=== PATIENT | male | born 1955 | race African-American/Black ===

== ENCOUNTER 2023-07-15 08:45 | Inpatient (IN) | payer OTHER ==
[2023-07-15 09:25] VITALS: BMI 22.7
[2023-07-15] MEDS ORDERED: hydrOXYzine PAMOATE 25 MG CAPSULE (FP) PO PRN (12:49)
[2023-07-15] MEDS ORDERED: MAGNESIUM HYDROX 2400MG/30ML ORAL SUSPENSION 30 ML CUP PO PRN (12:49)
[2023-07-15] MEDS ORDERED: COLLOIDAL OATMEAL 1 BAR EACH TP PRN (12:49)
[2023-07-15] MEDS ORDERED: IBUPROFEN 600 MG TABLET (FP) PO PRN (12:49)
[2023-07-15] MEDS ORDERED: LOPERAMIDE HCL 2 MG CAPSULE PO PRN (12:49)
[2023-07-15] MEDS ORDERED: NICOTINE POLACRILEX 2 MG GUM BUC PRN (12:49)
[2023-07-15] MEDS ORDERED: BENZOCAINE/MENTHOL (CHLORASEPTIC ) LOZENGE MM PRN (12:49)
[2023-07-15] MEDS ORDERED: POLYETHYLENE GLYCOL (HEALTHYLAX) 3350 17 GM PACKET PO PRN (12:49)
[2023-07-15] MEDS ORDERED: IBUPROFEN 400 MG TABLET (FP) PO PRN (12:49)
[2023-07-15] MEDS ORDERED: guaiFENesin 600 MG TABLET.ER (FP) PO PRN (12:49)
[2023-07-15] MEDS ORDERED: BENZONATATE 200 MG CAPSULE PO PRN (12:49)
[2023-07-15] MEDS ORDERED: ACETAMINOPHEN 325 MG TABLET (FP) PO PRN (12:49)
[2023-07-15] MEDS ORDERED: P-EPHED 60MG/TRIPROLIDI 2.5MG TABLET PO PRN (12:49)
[2023-07-15] MEDS ORDERED: TUBERCULIN PPD 5 TU/0.1ML VIAL ID ONE (16:50)
[2023-07-15] MEDS: MELATONIN 5 MG TABLETS PO SCH (21:36)
[2023-07-15] MEDS: THIAMINE HCL 100 MG TABLET (FP) PO SCH (21:36)
[2023-07-16] MEDS: FLUCONAZOLE 100 MG TABLET (UD) PO SCH (10:19)
[2023-07-16] MEDS: ALLOPURINOL 100 MG TABLET (FP) PO SCH (10:19)
[2023-07-16] MEDS: PRENATAL VITAMINS W/ FOLIC ACID TABLET (FP) PO SCH (10:19)
[2023-07-16] MEDS: amLODIPine BESYLATE 10 MG TABLET (FP) PO SCH (10:20)
[2023-07-16 12:09] LABS: POTASSIUM 4.1 mmol/L (3.5-5.1)
[2023-07-16 12:12] LABS: ALBUMIN 3.3 g/dl (3.4-5.0); BLOOD UREA NITROGEN 23.5 mg/dL (7-18); CALCIUM 9.5 mg/dL (8.5-10.1)
[2023-07-16 12:15] LABS: CREATININE 0.8 mg/dL (0.55-1.3)
[2023-07-16 12:18] LABS: BILIRUBIN,TOTAL 0.4 mg/dL (0.2-1); TOT PROT 7.9 g/dl (6.4-8.2)
[2023-07-16 12:21] LABS: PH,URINE 7.5 (5.0-8.0); URINE APPEARANCE CLEAR; URINE BILIRUBIN NEGATIVE (NEGATIVE); URINE COLOR YELLOW; URINE GLUCOSE (UA) NEGATIVE (NEGATIVE); URINE KETONE NEGATIVE (NEGATIVE); URINE LEUK ESTERASE NEGATIVE (NEGATIVE); URINE NITRITE NEGATIVE (NEGATIVE); URINE PROTEIN NEGATIVE (NEGATIVE); URINE UROBILINOGEN 0.2 mg/dL (0.2-1.0)
[2023-07-16] MEDS: MELATONIN 5 MG TABLETS PO SCH (21:50)
[2023-07-16] MEDS: THIAMINE HCL 100 MG TABLET (FP) PO SCH (21:50)
[2023-07-17 07:06] VITALS: RESP 18
[2023-07-17] MEDS: PRENATAL VITAMINS W/ FOLIC ACID TABLET (FP) PO SCH (10:21)
[2023-07-17] MEDS: FLUCONAZOLE 100 MG TABLET (UD) PO SCH (10:22)
[2023-07-17] MEDS: amLODIPine BESYLATE 10 MG TABLET (FP) PO SCH (10:22)
[2023-07-17] MEDS: ALLOPURINOL 100 MG TABLET (FP) PO SCH (10:22)
[2023-07-17] MEDS: MELATONIN 5 MG TABLETS PO SCH (22:01)
[2023-07-17] MEDS: MAG HYDROX/AL HYDROX/SIMETH 30 ML UNIT-DOSE CUP PO PRN (22:01)
[2023-07-17] MEDS: THIAMINE HCL 100 MG TABLET (FP) PO SCH (22:01)
[2023-07-18 07:04] VITALS: TEMP 98
[2023-07-18] MEDS: PRENATAL VITAMINS W/ FOLIC ACID TABLET (FP) PO SCH (09:37)
[2023-07-18] MEDS: amLODIPine BESYLATE 10 MG TABLET (FP) PO SCH (09:37)
[2023-07-18] MEDS: MAG HYDROX/AL HYDROX/SIMETH 30 ML UNIT-DOSE CUP PO PRN ×2 (09:37→19:14)
[2023-07-18] MEDS: FLUCONAZOLE 100 MG TABLET (UD) PO SCH (10:33)
[2023-07-18] MEDS: ALLOPURINOL 100 MG TABLET (FP) PO SCH (10:33)
[2023-07-18 11:46] LABS: SYPHILIS W/ RPR CONF NON-REACTIVE (NONREACTIVE)
[2023-07-18] MEDS: THIAMINE HCL 100 MG TABLET (FP) PO SCH (21:35)
[2023-07-18] MEDS: MELATONIN 5 MG TABLETS PO SCH (21:35)
[2023-07-19] MEDS: MAG HYDROX/AL HYDROX/SIMETH 30 ML UNIT-DOSE CUP PO PRN ×2 (01:00→09:22)
[2023-07-19] MEDS: ALLOPURINOL 100 MG TABLET (FP) PO SCH (09:21)
[2023-07-19] MEDS: FLUCONAZOLE 100 MG TABLET (UD) PO SCH (09:22)
[2023-07-19] MEDS: amLODIPine BESYLATE 10 MG TABLET (FP) PO SCH (09:22)
[2023-07-19] MEDS: PRENATAL VITAMINS W/ FOLIC ACID TABLET (FP) PO SCH (09:24)
[2023-07-19 10:17] VITALS: BP 120/72; PULSE 74
[2023-07-19] MEDS ORDERED: PANTOPRAZOLE 40 MG TABLET PO SCH (11:45)
[2023-07-19] MEDS ORDERED: BISMUTH SUBSALICYLATE 262 MG/15 ML BTL PO SCH (12:00)
[2023-07-19] MEDS: MELATONIN 5 MG TABLETS PO SCH (21:48)
[2023-07-19] MEDS: THIAMINE HCL 100 MG TABLET (FP) PO SCH (21:48)
== END 2023-07-19 23:44 | disposition short-term general hospital (02) | DRG 895 ==
LOC: YASAS 08:45 → Y5N 13:08
PROVIDERS: ADMIT Allergy & Immunology; ATTEND Psychiatry & Neurology Pain Medicine
PROC: HZ42ZZZ Group Counseling for Substance Abuse Treatment, Cognitive-Behavioral (ICD-10-PCS; principal; 2023-07-15)
DX: F14.20 Cocaine dependence, uncomplicated (principal); K92.0 Hematemesis; Z59.00 Homelessness unspecified; F10.20 Alcohol dependence, uncomplicated; F17.210 Nicotine dependence, cigarettes, uncomplicated; K21.9 Gastro-esophageal reflux disease without esophagitis; I10 Essential (primary) hypertension; M41.9 Scoliosis, unspecified; M54.50 Low back pain, unspecified; G89.29 Other chronic pain; Z56.0 Unemployment, unspecified
CPT/HCPCS: 36415; 80053; 81003; 86780; 86803; 87635; 87811

== ENCOUNTER 2023-07-19 14:08 | Inpatient (IN) | payer OTHER ==
[2023-07-19] MEDS ORDERED: SODIUM CHLORIDE 0.9% 500 ML INFUS.BAG IV ONE (15:04)
[2023-07-19] MEDS ORDERED: ACETAMINOPHEN 1000 MG/100 ML BAG IVPB ONE (15:04)
[2023-07-19] MEDS ORDERED: FAMOTIDINE 20 MG/50 ML IVPB 20 MG/50 ML MG IVPB ONE (15:04)
[2023-07-19 15:56] LABS: BASO % 0.2 % (0-2.0); EOS % 0.5 % (0-4.5); HEMATOCRIT 38.5 % (35.4-49); HEMOGLOBIN 12.7 GM/dL (11.7-16.9); LYMPH % 8.6 % (8-40); MCH 28.4 pg (25.7-33.7); MCHC 32.9 g/dl (32.0-35.9); MEAN CELL VOLUME 86.3 fl (80-96); MEAN PLT VOLUME 6.7 fl (7.5-11.1); NEUT % 84.7 % (42.8-82.8); PLATELET COUNT 435 10^3/uL (134-434); RBC 4.47 M/mm3 (4.00-5.60); RDW 15.5 % (11.9-15.9); WHITE BLOOD COUNT 5.1 K/mm3 (4.0-10.0)
[2023-07-19 15:58] LABS: PH,URINE 8.5 (5.0-8.0); URINE APPEARANCE CLOUDY; URINE BILIRUBIN NEGATIVE (NEGATIVE); URINE COLOR YELLOW; URINE GLUCOSE (UA) NEGATIVE (NEGATIVE); URINE KETONE NEGATIVE (NEGATIVE); URINE LEUK ESTERASE NEGATIVE (NEGATIVE); URINE NITRITE NEGATIVE (NEGATIVE); URINE PROTEIN NEGATIVE (NEGATIVE); URINE UROBILINOGEN 0.2 mg/dL (0.2-1.0)
[2023-07-19] MEDS ORDERED: ACETAMINOPHEN INJECTION 100 ML IVPB ONE (15:58)
[2023-07-19 16:10] LABS: INR 1.1 (0.83-1.09); PROTHROMBIN TIME (PATIENT) 12.7 SEC (9.7-13.0)
[2023-07-19 16:12] LABS: ACTIVATED PTT 27.3 SECONDS (25.2-36.5)
[2023-07-19] MEDS ORDERED: PANTOPRAZOLE SODIUM 40 MG VIAL IVPUSH ONE (16:14)
[2023-07-19 16:18] LABS: POTASSIUM 4.6 mmol/L (3.5-5.1)
[2023-07-19 16:20] LABS: ALBUMIN 3.6 g/dl (3.4-5.0); MAGNESIUM 2.4 mg/dL (1.8-2.4)
[2023-07-19 16:23] LABS: CREATININE 0.8 mg/dL (0.55-1.3)
[2023-07-19 16:25] LABS: BILIRUBIN,TOTAL 0.4 mg/dL (0.2-1); TOT PROT 8.8 g/dl (6.4-8.2)
[2023-07-19] MEDS ORDERED: PANTOPRAZOLE SODIUM 40 MG/100 ML BAG IVPB ONE (16:41)
[2023-07-19] MEDS ORDERED: SODIUM CHLORIDE 1,000 ML IV SCH (21:15)
[2023-07-19] MEDS: PANTOPRAZOLE SODIUM 40 MG VIAL IVPUSH SCH (23:31)
[2023-07-19] MEDS: SODIUM CHLORIDE 1,000 ML IV SCH (23:31)
[2023-07-20] MEDS ORDERED: FLUCONAZOLE 200 MG PO SCH (10:00)
[2023-07-20] MEDS ORDERED: PATIENT'S OWN MEDICATION (NON-FORMULARY) (Fluconazole [Fluconazole] 200 MG) IV SCH (10:00)
[2023-07-20] MEDS ORDERED: amLODIPine BESYLATE 10 MG TABLET (FP) PO SCH (10:00)
[2023-07-20] MEDS: ALLOPURINOL 100 MG TABLET (FP) PO SCH (10:36)
[2023-07-20] MEDS: PANTOPRAZOLE SODIUM 40 MG VIAL IVPUSH SCH ×2 (10:36→21:59)
[2023-07-20 10:44] LABS: HEMATOCRIT 35.9 % (35.4-49); HEMOGLOBIN 11.8 GM/dL (11.7-16.9); MCH 28.5 pg (25.7-33.7); MCHC 32.9 g/dl (32.0-35.9); MEAN CELL VOLUME 86.6 fl (80-96); MEAN PLT VOLUME 6.8 fl (7.5-11.1); PLATELET COUNT 472 10^3/uL (134-434); RBC 4.14 M/mm3 (4.00-5.60); RDW 15.6 % (11.9-15.9); WHITE BLOOD COUNT 3.4 K/mm3 (4.0-10.0)
[2023-07-20] MEDS: FLUCONAZOLE 200 MG/NS 100 ML IVPB SCH (11:21)
[2023-07-20 11:38] LABS: POTASSIUM 5.4 mmol/L (3.5-5.1)
[2023-07-20 11:40] LABS: ALBUMIN 3.3 g/dl (3.4-5.0); CALCIUM 9.8 mg/dL (8.5-10.1)
[2023-07-20 11:41] LABS: BLOOD UREA NITROGEN 13.5 mg/dL (7-18)
[2023-07-20 11:43] LABS: BILIRUBIN,DIRECT 0.2 mg/dL (0.0-0.2)
[2023-07-20 11:44] LABS: CREATININE 0.8 mg/dL (0.55-1.3)
[2023-07-20 11:45] LABS: BILIRUBIN,TOTAL 0.7 mg/dL (0.2-1)
[2023-07-20 13:00] LABS: HIV INTERPRETATION NEGATIVE (NEGATIVE)
[2023-07-20] MEDS ORDERED: SODIUM ZIRCONIUM CYCLOSILICATE (LOKELMA) 5 GM PACKET PO ONE (16:00)
[2023-07-20 19:37] LABS: HEMATOCRIT 33.2 % (35.4-49); HEMOGLOBIN 10.9 GM/dL (11.7-16.9); MCH 28.3 pg (25.7-33.7); MCHC 32.7 g/dl (32.0-35.9); MEAN CELL VOLUME 86.6 fl (80-96); MEAN PLT VOLUME 6.8 fl (7.5-11.1); PLATELET COUNT 425 10^3/uL (134-434); RBC 3.83 M/mm3 (4.00-5.60); RDW 15.3 % (11.9-15.9); WHITE BLOOD COUNT 3.2 K/mm3 (4.0-10.0)
[2023-07-20] MEDS: SODIUM CHLORIDE 1,000 ML IV SCH (22:00)
[2023-07-21 09:18] VITALS: RESP 18
[2023-07-21 09:20] LABS: BASO % 0.6 % (0-2.0); EOS % 3.4 % (0-4.5); HEMATOCRIT 30.5 % (35.4-49); HEMOGLOBIN 10.1 GM/dL (11.7-16.9); LYMPH % 13.6 % (8-40); MCH 28.2 pg (25.7-33.7); MEAN CELL VOLUME 85.7 fl (80-96); MEAN PLT VOLUME 6.7 fl (7.5-11.1); MONO % 12.7 % (3.8-10.2); NEUT % 69.7 % (42.8-82.8); PLATELET COUNT 365 10^3/uL (134-434); RBC 3.56 M/mm3 (4.00-5.60); RDW 15.2 % (11.9-15.9); WHITE BLOOD COUNT 3.8 K/mm3 (4.0-10.0)
[2023-07-21 09:47] LABS: POTASSIUM 4.3 mmol/L (3.5-5.1)
[2023-07-21] MEDS: PANTOPRAZOLE SODIUM 40 MG VIAL IVPUSH SCH (09:48)
[2023-07-21] MEDS: ALLOPURINOL 100 MG TABLET (FP) PO SCH (09:48)
[2023-07-21] MEDS: FLUCONAZOLE 200 MG/NS 100 ML IVPB SCH (09:48)
[2023-07-21 10:01] LABS: ALBUMIN 2.6 g/dl (3.4-5.0); CALCIUM 8.6 mg/dL (8.5-10.1)
[2023-07-21 10:04] LABS: CREATININE 0.8 mg/dL (0.55-1.3)
[2023-07-21 10:05] LABS: BILIRUBIN,TOTAL 0.4 mg/dL (0.2-1); TOT PROT 6.5 g/dl (6.4-8.2)
[2023-07-21 14:15] VITALS: BMI 21.2
[2023-07-21 14:57] VITALS: BP 106/49; PULSE 63; TEMP 98.2
== END 2023-07-21 15:54 | disposition other institution (70) | DRG 377 ==
LOC: JER 14:08 → JERBED 17:34 → J5S 20:41
PROVIDERS: ADMIT Internal Medicine; ATTEND Internal Medicine
DX: K92.0 Hematemesis (principal); E43 Unspecified severe protein-calorie malnutrition; B37.81 Candidal esophagitis; Z59.00 Homelessness unspecified; B37.9 Candidiasis, unspecified; F14.10 Cocaine abuse, uncomplicated; I10 Essential (primary) hypertension; F10.20 Alcohol dependence, uncomplicated; K21.9 Gastro-esophageal reflux disease without esophagitis; K22.70 Barrett's esophagus without dysplasia; K44.9 Diaphragmatic hernia without obstruction or gangrene; K22.6 Gastro-esophageal laceration-hemorrhage syndrome; K92.2 Gastrointestinal hemorrhage, unspecified; Z68.21 Body mass index [BMI] 21.0-21.9, adult
CPT/HCPCS: 36415; 71046-TC-FY; 76705-TC; 80048; 80053; 80076; 81003; 83605; 83690; 83735; 84100; 84484; 85025; 85027; 85610; 85730; 86850; 86900; 86901; 87086; 87389; 93005; 93010; 99285-25

== ENCOUNTER 2023-07-21 16:41 | Inpatient (IN) | payer OTHER ==
[2023-07-21 17:19] VITALS: BMI 21.5
[2023-07-21] MEDS ORDERED: ACETAMINOPHEN 325 MG TABLET (FP) PO PRN (17:47)
[2023-07-21] MEDS ORDERED: COLLOIDAL OATMEAL 1 BAR EACH TP PRN (17:47)
[2023-07-21] MEDS ORDERED: BENZOCAINE/MENTHOL (CHLORASEPTIC ) LOZENGE MM PRN (17:47)
[2023-07-21] MEDS ORDERED: MAGNESIUM HYDROX 2400MG/30ML ORAL SUSPENSION 30 ML CUP PO PRN (17:47)
[2023-07-21] MEDS ORDERED: P-EPHED 60MG/TRIPROLIDI 2.5MG TABLET PO PRN (17:47)
[2023-07-21] MEDS ORDERED: BENZONATATE 200 MG CAPSULE PO PRN (17:47)
[2023-07-21] MEDS ORDERED: MAG HYDROX/AL HYDROX/SIMETH 30 ML UNIT-DOSE CUP PO PRN (17:47)
[2023-07-21] MEDS ORDERED: LOPERAMIDE HCL 2 MG CAPSULE PO PRN (17:47)
[2023-07-21] MEDS ORDERED: POLYETHYLENE GLYCOL (HEALTHYLAX) 3350 17 GM PACKET PO PRN (17:47)
[2023-07-21] MEDS ORDERED: NICOTINE POLACRILEX 2 MG GUM BUC PRN (17:47)
[2023-07-21] MEDS ORDERED: guaiFENesin 600 MG TABLET.ER (FP) PO PRN (17:47)
[2023-07-21] MEDS: MELATONIN 5 MG TABLETS PO SCH (22:05)
[2023-07-21] MEDS: THIAMINE HCL 100 MG TABLET (FP) PO SCH (22:05)
[2023-07-22] MEDS: amLODIPine BESYLATE 10 MG TABLET (FP) PO SCH (09:45)
[2023-07-22] MEDS: PRENATAL VITAMINS W/ FOLIC ACID TABLET (FP) PO SCH (09:46)
[2023-07-22] MEDS: PANTOPRAZOLE 40 MG TABLET PO SCH (09:46)
[2023-07-22] MEDS: FLUCONAZOLE 100 MG TABLET (UD) PO SCH (10:54)
[2023-07-22] MEDS: ALLOPURINOL 100 MG TABLET (FP) PO SCH (11:00)
[2023-07-22] MEDS: MELATONIN 5 MG TABLETS PO SCH (21:44)
[2023-07-22] MEDS: THIAMINE HCL 100 MG TABLET (FP) PO SCH (21:44)
[2023-07-23] MEDS: PRENATAL VITAMINS W/ FOLIC ACID TABLET (FP) PO SCH (10:02)
[2023-07-23] MEDS: ALLOPURINOL 100 MG TABLET (FP) PO SCH (10:03)
[2023-07-23] MEDS: FLUCONAZOLE 100 MG TABLET (UD) PO SCH (10:03)
[2023-07-23] MEDS: PANTOPRAZOLE 40 MG TABLET PO SCH (10:03)
[2023-07-23] MEDS: amLODIPine BESYLATE 10 MG TABLET (FP) PO SCH (10:03)
[2023-07-23] MEDS: MELATONIN 5 MG TABLETS PO SCH (21:41)
[2023-07-23] MEDS: THIAMINE HCL 100 MG TABLET (FP) PO SCH (21:41)
[2023-07-24] MEDS: PRENATAL VITAMINS W/ FOLIC ACID TABLET (FP) PO SCH (09:46)
[2023-07-24] MEDS: ALLOPURINOL 100 MG TABLET (FP) PO SCH (09:47)
[2023-07-24] MEDS: amLODIPine BESYLATE 10 MG TABLET (FP) PO SCH (09:47)
[2023-07-24] MEDS: PANTOPRAZOLE 40 MG TABLET PO SCH (09:47)
[2023-07-24] MEDS: FLUCONAZOLE 100 MG TABLET (UD) PO SCH (09:47)
[2023-07-24] MEDS: THIAMINE HCL 100 MG TABLET (FP) PO SCH (21:54)
[2023-07-24] MEDS: MELATONIN 5 MG TABLETS PO SCH (21:54)
[2023-07-25] MEDS: PRENATAL VITAMINS W/ FOLIC ACID TABLET (FP) PO SCH (09:52)
[2023-07-25] MEDS: amLODIPine BESYLATE 10 MG TABLET (FP) PO SCH (09:52)
[2023-07-25] MEDS: PANTOPRAZOLE 40 MG TABLET PO SCH (09:52)
[2023-07-25] MEDS: ALLOPURINOL 100 MG TABLET (FP) PO SCH (09:53)
[2023-07-25] MEDS: FLUCONAZOLE 100 MG TABLET (UD) PO SCH (09:53)
[2023-07-25] MEDS: MELATONIN 5 MG TABLETS PO SCH (23:26)
[2023-07-25] MEDS: THIAMINE HCL 100 MG TABLET (FP) PO SCH (23:26)
[2023-07-26] MEDS: PRENATAL VITAMINS W/ FOLIC ACID TABLET (FP) PO SCH (09:59)
[2023-07-26] MEDS: ALLOPURINOL 100 MG TABLET (FP) PO SCH (09:59)
[2023-07-26] MEDS: PANTOPRAZOLE 40 MG TABLET PO SCH (09:59)
[2023-07-26] MEDS: amLODIPine BESYLATE 10 MG TABLET (FP) PO SCH (09:59)
[2023-07-26] MEDS: FLUCONAZOLE 100 MG TABLET (UD) PO SCH (10:00)
[2023-07-26] MEDS: THIAMINE HCL 100 MG TABLET (FP) PO SCH (21:44)
[2023-07-26] MEDS: MELATONIN 5 MG TABLETS PO SCH (21:44)
[2023-07-27] MEDS: PRENATAL VITAMINS W/ FOLIC ACID TABLET (FP) PO SCH (09:46)
[2023-07-27] MEDS: amLODIPine BESYLATE 10 MG TABLET (FP) PO SCH (09:47)
[2023-07-27] MEDS: PANTOPRAZOLE 40 MG TABLET PO SCH (09:47)
[2023-07-27] MEDS: ALLOPURINOL 100 MG TABLET (FP) PO SCH (09:47)
[2023-07-27] MEDS: FLUCONAZOLE 100 MG TABLET (UD) PO SCH (09:48)
[2023-07-27] MEDS: THIAMINE HCL 100 MG TABLET (FP) PO SCH (22:20)
[2023-07-27] MEDS: MELATONIN 5 MG TABLETS PO SCH (22:20)
[2023-07-28] MEDS: PRENATAL VITAMINS W/ FOLIC ACID TABLET (FP) PO SCH (09:53)
[2023-07-28] MEDS: FLUCONAZOLE 100 MG TABLET (UD) PO SCH (09:54)
[2023-07-28] MEDS: amLODIPine BESYLATE 10 MG TABLET (FP) PO SCH (09:54)
[2023-07-28] MEDS: PANTOPRAZOLE 40 MG TABLET PO SCH (09:54)
[2023-07-28] MEDS: ALLOPURINOL 100 MG TABLET (FP) PO SCH (09:54)
[2023-07-28] MEDS: MELATONIN 5 MG TABLETS PO SCH (22:05)
[2023-07-28] MEDS: THIAMINE HCL 100 MG TABLET (FP) PO SCH (22:05)
[2023-07-29] MEDS: FLUCONAZOLE 100 MG TABLET (UD) PO SCH (09:49)
[2023-07-29] MEDS: amLODIPine BESYLATE 10 MG TABLET (FP) PO SCH (09:49)
[2023-07-29] MEDS: ALLOPURINOL 100 MG TABLET (FP) PO SCH (09:49)
[2023-07-29] MEDS: PANTOPRAZOLE 40 MG TABLET PO SCH (09:49)
[2023-07-29] MEDS: PRENATAL VITAMINS W/ FOLIC ACID TABLET (FP) PO SCH (09:49)
[2023-07-29] MEDS: THIAMINE HCL 100 MG TABLET (FP) PO SCH (22:37)
[2023-07-29] MEDS: MELATONIN 5 MG TABLETS PO SCH (22:37)
[2023-07-30] MEDS: PRENATAL VITAMINS W/ FOLIC ACID TABLET (FP) PO SCH (09:56)
[2023-07-30] MEDS: amLODIPine BESYLATE 10 MG TABLET (FP) PO SCH (09:57)
[2023-07-30] MEDS: ALLOPURINOL 100 MG TABLET (FP) PO SCH (09:57)
[2023-07-30] MEDS: PANTOPRAZOLE 40 MG TABLET PO SCH (09:57)
[2023-07-30] MEDS: MELATONIN 5 MG TABLETS PO SCH (22:06)
[2023-07-30] MEDS: THIAMINE HCL 100 MG TABLET (FP) PO SCH (22:06)
[2023-07-31 06:54] VITALS: RESP 18
[2023-07-31] MEDS: ALLOPURINOL 100 MG TABLET (FP) PO SCH (09:55)
[2023-07-31] MEDS: PRENATAL VITAMINS W/ FOLIC ACID TABLET (FP) PO SCH (09:55)
[2023-07-31] MEDS: PANTOPRAZOLE 40 MG TABLET PO SCH (09:55)
[2023-07-31] MEDS: amLODIPine BESYLATE 10 MG TABLET (FP) PO SCH (09:55)
[2023-07-31] MEDS: MELATONIN 5 MG TABLETS PO SCH (22:45)
[2023-07-31] MEDS: THIAMINE HCL 100 MG TABLET (FP) PO SCH (22:45)
[2023-08-01] MEDS: PANTOPRAZOLE 40 MG TABLET PO SCH (10:04)
[2023-08-01] MEDS: amLODIPine BESYLATE 10 MG TABLET (FP) PO SCH (10:04)
[2023-08-01] MEDS: ALLOPURINOL 100 MG TABLET (FP) PO SCH (10:04)
[2023-08-01] MEDS: PRENATAL VITAMINS W/ FOLIC ACID TABLET (FP) PO SCH (10:04)
[2023-08-01] MEDS: MELATONIN 5 MG TABLETS PO SCH (22:05)
[2023-08-01] MEDS: THIAMINE HCL 100 MG TABLET (FP) PO SCH (22:05)
[2023-08-02] MEDS: ALLOPURINOL 100 MG TABLET (FP) PO SCH (09:44)
[2023-08-02] MEDS: amLODIPine BESYLATE 10 MG TABLET (FP) PO SCH (09:44)
[2023-08-02] MEDS: PRENATAL VITAMINS W/ FOLIC ACID TABLET (FP) PO SCH (09:44)
[2023-08-02] MEDS: PANTOPRAZOLE 40 MG TABLET PO SCH (09:45)
[2023-08-02] MEDS: THIAMINE HCL 100 MG TABLET (FP) PO SCH (22:08)
[2023-08-02] MEDS: MELATONIN 5 MG TABLETS PO SCH (22:08)
[2023-08-03] MEDS: PANTOPRAZOLE 40 MG TABLET PO SCH (09:35)
[2023-08-03] MEDS: amLODIPine BESYLATE 10 MG TABLET (FP) PO SCH (09:35)
[2023-08-03] MEDS: ALLOPURINOL 100 MG TABLET (FP) PO SCH (09:35)
[2023-08-03] MEDS: PRENATAL VITAMINS W/ FOLIC ACID TABLET (FP) PO SCH (09:36)
[2023-08-03] MEDS: MELATONIN 5 MG TABLETS PO SCH (21:33)
[2023-08-03] MEDS: THIAMINE HCL 100 MG TABLET (FP) PO SCH (21:33)
[2023-08-04] MEDS: ALLOPURINOL 100 MG TABLET (FP) PO SCH (09:55)
[2023-08-04] MEDS: PANTOPRAZOLE 40 MG TABLET PO SCH (09:55)
[2023-08-04] MEDS: amLODIPine BESYLATE 10 MG TABLET (FP) PO SCH (09:55)
[2023-08-04] MEDS: PRENATAL VITAMINS W/ FOLIC ACID TABLET (FP) PO SCH (09:55)
[2023-08-04] MEDS: THIAMINE HCL 100 MG TABLET (FP) PO SCH (23:03)
[2023-08-04] MEDS: MELATONIN 5 MG TABLETS PO SCH (23:03)
[2023-08-05 07:16] VITALS: BP 147/71; PULSE 77; TEMP 97.2
[2023-08-05] MEDS: ALLOPURINOL 100 MG TABLET (FP) PO SCH (09:02)
[2023-08-05] MEDS: amLODIPine BESYLATE 10 MG TABLET (FP) PO SCH (09:02)
[2023-08-05] MEDS: PANTOPRAZOLE 40 MG TABLET PO SCH (09:02)
[2023-08-05] MEDS: PRENATAL VITAMINS W/ FOLIC ACID TABLET (FP) PO SCH (09:02)
== END 2023-08-05 09:05 | disposition home or self-care (01) | DRG 895 ==
LOC: YASAS 16:41 → Y5N 19:25
PROVIDERS: ADMIT Allergy & Immunology; ATTEND Psychiatry & Neurology Pain Medicine
PROC: HZ42ZZZ Group Counseling for Substance Abuse Treatment, Cognitive-Behavioral (ICD-10-PCS; principal; 2023-07-21)
DX: F10.20 Alcohol dependence, uncomplicated (principal); F14.20 Cocaine dependence, uncomplicated; F17.210 Nicotine dependence, cigarettes, uncomplicated; I10 Essential (primary) hypertension; M54.50 Low back pain, unspecified; G89.29 Other chronic pain; R00.0 Tachycardia, unspecified
CPT/HCPCS: 87635